=== PATIENT | female | born 1995 | race Caucasian/White ===

== ENCOUNTER 2023-11-16 08:53 | Outpatient (CLI) | payer OTHER, SELFPAY ==
--- NOTE | 2023-11-16 09:03 | US_ITS ---
WS: [id number] RIGHT UPPER QUADRANT ULTRASOUND HISTORY: PALE STOOL/NAUSEA COMPARISON: None available. Liver: 14.5 cm in length. Normal size liver and echogenicity. No bile duct dilatation or mass. Portal Vein: Normal hepatopetal flow with monophasic waveform. Gallbladder: Normally distended gallbladder with no stones or wall thickening. CBD: 0.3 cm Pancreas: Normal size and echogenicity. Right kidney: 9.9 cm in length. Normal size and echogenicity. No hydronephrosis or mass. Aorta and IVC: Unremarkable abdominal aorta and IVC. No ascites. IMPRESSION: Normal right upper quadrant ultrasound.
== END 2023-11-16 08:54 | disposition home or self-care (01) ==
LOC: RAD 08:58
PROVIDERS: PCP Registered Nurse; Visit Provider Registered Nurse
DX: R19.5 Other fecal abnormalities (principal); R11.0 Nausea
CPT/HCPCS: 76705